=== PATIENT | female | born 1990 | race Caucasian/White ===

== ENCOUNTER 2018-10-29 17:13 | Emergency (ER) | payer SELFPAY ==
[~2018-10-29] VITALS: Ht 165.1 cm; Wt 86.2 kg
[2018-10-29 17:25] VITALS: BP 130/55
--- NOTE | 2018-10-29 17:39 | NUR ---
PT AMB TO BED 4
[2018-10-29] MEDS ORDERED: DEXAMETHASONE 10 MG/ML VIAL IM ONE (18:00)
[2018-10-29] MEDS ORDERED: HYDROcodone/APAP 5/325 MG 1 TAB TAB PO ONE (18:00)
--- NOTE | 2018-10-29 18:12 | NUR ---
PT BIB FAMILY C/O NAUSEA, FEVER, HEADACHE, SORE THROAT 3 DAYS. PT ALSO HAS DRY COUGH. TOOK TYLENOL AT 1200 PM TODAY, CURRENT TEMP 100.7 AT THIS TIME. AIRWAY PATENT, VOICE CLEAR, RR EVEN, NON-LABORED, LUNG SOUNDS CLEAR. VSS. ER TO SEE PT
[2018-10-29 19:10] VITALS: BP 132/78
--- NOTE | 2018-10-29 19:11 | NUR ---
Patient discharged with v/s stable. Written and verbal after care instructions given and explained. Patient alert, oriented and verbalized understanding of instructions. Ambulatory with steady gait. All questions addressed prior to discharge. ID band removed. Patient advised to follow up with PMD. Rx of norco/penicillin vk/naprosyn given. Patient educated on indication of medication including possible reaction and side effects. Opportunity to ask questions provided and answered.
== END 2018-10-29 19:11 | disposition home or self-care (01) ==
LOC: MED 17:13
DX: J03.90 Acute tonsillitis, unspecified (principal)
CPT/HCPCS: 87081; 96372; 99283; J1100

== ENCOUNTER 2019-05-25 23:36 | Emergency (ER) | payer SELFPAY ==
[~2019-05-25] VITALS: Ht 165.1 cm; Wt 90.7 kg
[2019-05-25 23:37] VITALS: BP 119/77
--- NOTE | 2019-05-25 23:40 | NUR ---
to verenice a/w lashell ed ambulatory
--- NOTE | 2019-05-26 01:05 | NUR ---
PT CALLED IN LOBBY AND OUTSIDE, NO ANSWER.
--- NOTE | 2019-05-26 01:10 | NUR ---
Yash candelaria in [facility] - 05/26/19 at 0112 by MEDGJ PATIENT LEFT WITHOUT BEING SEEN BY . NO FURTHER CARE PROVIDED FOR PATIENT.
--- NOTE | 2019-05-26 01:10 | NUR ---
PT CALLED IN LOBBY AND OUTSIDE, NO ANSWER.
--- NOTE | 2019-05-26 01:13 | NUR ---
PATIENT LEFT WITHOUT BEING SEEN BY DR. CLEMENTE. NO FURTHER CARE PROVIDED FOR PATIENT.
== END 2019-05-26 01:05 | disposition left against medical advice (07) ==
LOC: MED 23:36
DX: Z53.21 Procedure and treatment not carried out due to patient leaving prior to being seen by health care provider (principal)
CPT/HCPCS: 93005; 99281